=== PATIENT | male | born 1985 | race Caucasian/White ===

== ENCOUNTER 2018-12-29 12:28 | Emergency (ER) | payer OTHER ==
[~2018-12-29] VITALS: Ht 185.4 cm; Wt 104.5 kg
[2018-12-29 12:28] VITALS: BP 142/92
--- NOTE | 2018-12-29 13:22 | REP ---
Clinical: Cough . Comparison: None . Technique: PA and lateral. Findings: The mediastinum and cardiac silhouette are normal. The lung foreman are clear and without acute consolidation, effusion, or pneumothorax. The skeletal structures are intact and normal. Impression: 1. No acute cardiopulmonary process. Electronically Signed by Branden Mckinney MD 12/29/2018 01:13 P
[2018-12-29] MEDS ORDERED: PROAAER10 INH ×2 (15:10→15:20)
[2018-12-29] MEDS ORDERED: TESS100C PO ×2 (15:10→15:20)
== END 2018-12-29 15:26 | disposition home or self-care (01) ==
LOC: M ED 12:28
DX: J20.9 Acute bronchitis, unspecified (principal)

== ENCOUNTER 2020-04-14 15:02 | Emergency (ER) | payer OTHER ==
[~2020-04-14] VITALS: Ht 185.4 cm; Wt 117.0 kg
[2020-04-14 15:02] VITALS: BP 146/92
[~2020-04-14 15:02] MED LIST: PROAAER10 INH; TESS100C PO
--- NOTE | 2020-04-14 15:49 | REP ---
INDICATION: "crack" to right ribs. COMPARISON: Chest 12/29/2018 TECHNIQUE: PA chest with 4 right rib images. FINDINGS: PA chest of the lung foreman are well inflated. There is no effusion infiltrate atelectasis or mass. No lateral pleural thickening apical scarring. I see no pneumothorax. Heart, mediastinal and hilar contours are normal. The aorta and airway are intact. Clavicles and scapular intact visualized ribs grossly intact on the PA chest. Right ribs: The posterior rib articulations are normal for both sides. The ribs, scapula, clavicle and the humeral head likewise show no visible or displaced fracture. No pleural effusion or pneumothorax. Visualized vertebral bodies unremarkable. IMPRESSION: 1. Negative PA chest and right rib series for any acute abnormality. <Electronically signed by Slick Alvarado > 04/14/20 1840
[2020-04-14] MEDS ORDERED: IBUP-1022 PO (15:58)
== END 2020-04-14 16:07 | disposition home or self-care (01) ==
LOC: M ED 15:02
DX: R07.9 Chest pain, unspecified (principal)